=== PATIENT | male | born 1965 | race Caucasian/White ===

== ENCOUNTER → 2016-08-16 | Outpatient (CLI) | payer SELFPAY ==
[~2016-08-16] MED LIST: DIPH25CA37 PO; NAPR1TAB9 PO
[2016-08-16 12:57] LABS: ALKALINE PHOSPHATASE 49 U/L (45-117); ALT/SGPT 39 U/L (12-78); AST/SGOT 23 U/L (15-37); BLOOD UREA NITROGEN 17 mg/dl (7-18); BUN/CREATININE RATIO 13.9 (10-20); CALCIUM 9.1 mg/dl (8.5-10.1); CARBON DIOXIDE 26 mmol/L (21-32); CHLORIDE 107 mmol/L (98-107); CHOLESTEROL 136 mg/dl (0-200); GLUCOSE 115 mg/dl (70-99); POTASSIUM 4.2 mmol/L (3.5-5.1); SODIUM 140 mmol/L (136-145)
[2016-08-16 13:00] LABS: ESTIMATED AVERAGE GLUCOSE 123 mg/dl; HA1C FLAG Normal (Normal)
[2016-08-16 13:03] LABS: CHOLESTEROL/HDL RATIO 4.4; HDL CHOLESTEROL 31 mg/dl; LDL CHOLESTEROL CALCULATED 86 mg/dl; TRIGLYCERIDES 97 mg/dl (0-150); VERY LOW DENSITY LIPOPROT CALC 19 mg/dl
== END | disposition home or self-care (01) ==
LOC: C.LABPVFM 07:34
PROVIDERS: ATTEND Family Medicine
DX: E78.5 Hyperlipidemia, unspecified (principal); E11.9 Type 2 diabetes mellitus without complications

== ENCOUNTER → 2016-09-27 | Outpatient (CLI) | payer OTHER ==
--- NOTE | 2016-09-27 16:41 | DIAGNOSTIC IMAGING REPORT ---
LEFT WRIST MIN 3 VIEWS ROUTINE CLINICAL HISTORY: M25.529 Elbow pain, [id number] Chronic elbow painM13.80 Symms COMPARISON: None. DISCUSSION: Severe degenerative change throughout the distal radius ulna as well as carpal structures. Multiple subchondral cysts. Generalized bony osteopenia. There is no evidence for soft tissue swelling. 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 Electronically signed by: Mehul Alanis M.D. 09/27/2016 4:39 PM Dictated Date/Time: 09/27/2016 4:38 PM
--- NOTE | 2016-09-27 16:42 | DIAGNOSTIC IMAGING REPORT ---
RIGHT WRIST MIN 3 VIEWS ROUTINE CLINICAL HISTORY: M25.529 Elbow pain, [id number] Chronic elbow painM13.80 Symms Right COMPARISON: None. DISCUSSION: The bones and joint spaces appear intact. There is no evidence of fracture, dislocation or bony disease. Considerable degenerative change throughout. Multiple subchondral cysts. IMPRESSION: Severe degenerative and cystic change. No acute fracture or dislocation. Electronically signed by: Mehul Alanis M.D. 09/27/2016 4:40 PM Dictated Date/Time: 09/27/2016 4:39 PM
--- NOTE | 2016-09-27 16:43 | DIAGNOSTIC IMAGING REPORT ---
RIGHT HAND MIN 3 VIEWS ROUTINE CLINICAL HISTORY: M25.529 Elbow pain, [id number] Chronic elbow painM13.80 Symms Right COMPARISON: None. DISCUSSION: Severe degenerative and erosive change of the first through third carpometacarpal joints. Moderate degenerative changes of the proximal interphalangeal joints. The appearance is suggestive of erosive osteoarthritic change. There is no evidence for soft tissue swelling. IMPRESSION: Findings consistent with rather significant erosive osteoarthritic change. Electronically signed by: Mehul Alanis M.D. 09/27/2016 4:41 PM Dictated Date/Time: 09/27/2016 4:40 PM
--- NOTE | 2016-09-27 16:44 | DIAGNOSTIC IMAGING REPORT ---
LEFT HAND MIN 3 VIEWS ROUTINE CLINICAL HISTORY: M25.529 Elbow pain, [id number] Chronic elbow painM13.80 Symms pain COMPARISON: None. DISCUSSION: Considerable erosive osteoarthritic change throughout the wrist and hand. Within the hand is most prominent at the metacarpal phalangeal joints as well as the proximal interphalangeal joint row. There is no evidence for fracture. Severe degenerative change of the osseous structures of the wrist are again noted. There is no evidence for soft tissue swelling. IMPRESSION: Severe erosive osteoarthritic change Electronically signed by: Mehul Alanis M.D. 09/27/2016 4:42 PM Dictated Date/Time: 09/27/2016 4:41 PM
[2016-09-27 17:49] LABS: TOTAL IRON BINDING CAPACITY 336 mcg/dl (250-450)
[2016-09-30 17:32] LABS: CYCLIC CITRULLINATED PEPT IGG >250 UNITS (<20); ENDOMYSIAL IGA AB TC 15064 Negative (Negative)
== END | disposition home or self-care (01) ==
LOC: C.RAD1850 15:51
PROVIDERS: ATTEND Internal Medicine Rheumatology
DX: M13.80 Other specified arthritis, unspecified site (principal); M25.529 Pain in unspecified elbow

== ENCOUNTER → 2016-12-28 | Outpatient (CLI) | payer OTHER ==
[2016-12-28 12:48] LABS: BASO % 0.4 %; BASO ABS # 0.02 K/uL (0-0.2); COMPLETE YES; EOS % 4.5 %; HEMATOCRIT 42.3 % (42-52); IG% 0.2 %; LYMPH % 30.4 %; LYMPH ABS # 1.61 K/uL (1.2-3.4); MEAN CELL VOLUME 86.7 fL (80-100); MEAN CORPUSCULAR HEMOGLOBIN 29.5 pg (25-34); MONO % 6.6 %; NEUT % 57.9 %; PLATELET COUNT 210 K/uL (130-400); RED BLOOD COUNT 4.88 M/uL (4.7-6.1)
[2016-12-28 13:12] LABS: ALT/SGPT 34 U/L (12-78)
[2016-12-28 13:15] LABS: ALKALINE PHOSPHATASE 40 U/L (45-117); AST/SGOT 19 U/L (15-37)
== END | disposition home or self-care (01) ==
LOC: C.LABPVFM 07:17
PROVIDERS: ATTEND Internal Medicine Rheumatology
DX: M05.9 Rheumatoid arthritis with rheumatoid factor, unspecified (principal); Z79.1 Long term (current) use of non-steroidal anti-inflammatories (NSAID); Z79.899 Other long term (current) drug therapy

== ENCOUNTER → 2017-02-07 | Outpatient (CLI) | payer OTHER ==
[2017-02-07 15:42] LABS: BASO % 0.3 %; BASO ABS # 0.02 K/uL (0-0.2); COMPLETE YES; EOS % 2.8 %; HEMATOCRIT 40.4 % (42-52); IG% 0.3 %; LYMPH % 19.8 %; LYMPH ABS # 1.14 K/uL (1.2-3.4); MEAN CELL VOLUME 84.2 fL (80-100); MEAN CORPUSCULAR HEMOGLOBIN 29.2 pg (25-34); MEAN CORPUSCULAR HGB CONC 34.7 g/dl (32-36); MEAN PLATELET VOLUME 9.8 fL (7.4-10.4); NEUT % 71.8 %; PLATELET COUNT 195 K/uL (130-400); WHITE BLOOD COUNT 5.75 K/uL (4.8-10.8)
[2017-02-07 16:09] LABS: ALT/SGPT 38 U/L (12-78); AST/SGOT 20 U/L (15-37)
== END | disposition home or self-care (01) ==
LOC: C.LAB1850 14:01
PROVIDERS: ATTEND Internal Medicine Rheumatology
DX: M05.9 Rheumatoid arthritis with rheumatoid factor, unspecified (principal); Z79.1 Long term (current) use of non-steroidal anti-inflammatories (NSAID); Z79.899 Other long term (current) drug therapy; L50.9 Urticaria, unspecified

== ENCOUNTER → 2017-07-06 | Outpatient (CLI) | payer OTHER ==
[2017-07-06 12:42] LABS: BASO % 0.4 %; BASO ABS # 0.02 K/uL (0-0.2); EOS ABS # 0.15 K/uL (0-0.5); HEMATOCRIT 46.1 % (42-52); HEMOGLOBIN 16.1 g/dL (14.0-18.0); IG# 0.02 K/uL (0.00-0.02); LYMPH % 33.8 %; LYMPH ABS # 1.68 K/uL (1.2-3.4); MEAN CELL VOLUME 89.7 fL (80-100); MEAN CORPUSCULAR HEMOGLOBIN 31.3 pg (25-34); MEAN CORPUSCULAR HGB CONC 34.9 g/dl (32-36); MEAN PLATELET VOLUME 10.1 fL (7.4-10.4); MONO % 9.7 %; MONO ABS # 0.48 K/uL (0.11-0.59); NEUT % 52.7 %; NEUT ABS # 2.62 K/uL (1.4-6.5); PLATELET COUNT 192 K/uL (130-400); RED CELL DISTRIBUTION WIDTH CV 13.9 % (11.5-14.5); RED CELL DISTRIBUTION WIDTH SD 45.7 fL (36.4-46.3); WHITE BLOOD COUNT 4.97 K/uL (4.8-10.8)
[2017-07-06 14:56] LABS: ALBUMIN 4.3 gm/dl (3.4-5.0); ALT/SGPT 49 U/L (12-78); AST/SGOT 24 U/L (15-37); CREATININE 1.28 mg/dl (0.60-1.40)
[2017-07-06 14:58] LABS: ALKALINE PHOSPHATASE 41 U/L (45-117); TOTAL PROTEIN 7.7 gm/dl (6.4-8.2)
== END | disposition home or self-care (01) ==
LOC: C.LABPVFM 07:52
PROVIDERS: ATTEND Internal Medicine Rheumatology
DX: Z51.81 Encounter for therapeutic drug level monitoring (principal); Z79.899 Other long term (current) drug therapy; M05.9 Rheumatoid arthritis with rheumatoid factor, unspecified

== ENCOUNTER → 2017-08-06 | Outpatient (CLI) | payer OTHER ==
[2017-08-06 13:18] LABS: HEMOGLOBIN A1C 5.4 % (4.5-5.6)
[2017-08-06 14:06] LABS: BLOOD UREA NITROGEN 14 mg/dl (7-18); CALCIUM 9.1 mg/dl (8.5-10.1); CARBON DIOXIDE 27 mmol/L (21-32); CHOLESTEROL 197 mg/dl (0-200); CREATININE 1.25 mg/dl (0.60-1.40); GLUCOSE 116 mg/dl (70-99); SODIUM 140 mmol/L (136-145)
[2017-08-06 14:11] LABS: LDL CHOLESTEROL CALCULATED 139 mg/dl
== END | disposition home or self-care (01) ==
LOC: C.LABPVFM 07:40
PROVIDERS: ATTEND Family Medicine
DX: R73.9 Hyperglycemia, unspecified (principal); Z79.899 Other long term (current) drug therapy

== ENCOUNTER → 2018-01-22 | Outpatient (CLI) | payer OTHER ==
[2018-01-22 12:54] LABS: BASO % 0.4 %; BASO ABS # 0.02 K/uL (0-0.2); EOS % 5.7 %; EOS ABS # 0.26 K/uL (0-0.5); HEMATOCRIT 45.4 % (42-52); HEMOGLOBIN 15.2 g/dL (14.0-18.0); IG# 0.01 K/uL (0.00-0.02); LYMPH % 40.2 %; LYMPH ABS # 1.82 K/uL (1.2-3.4); MEAN CELL VOLUME 90.3 fL (80-100); MEAN CORPUSCULAR HEMOGLOBIN 30.2 pg (25-34); MEAN CORPUSCULAR HGB CONC 33.5 g/dl (32-36); MEAN PLATELET VOLUME 10.3 fL (7.4-10.4); MONO % 10.6 %; MONO ABS # 0.48 K/uL (0.11-0.59); NEUT % 42.9 %; NEUT ABS # 1.94 K/uL (1.4-6.5); PLATELET COUNT 171 K/uL (130-400); RED CELL DISTRIBUTION WIDTH CV 13.2 % (11.5-14.5); RED CELL DISTRIBUTION WIDTH SD 43.3 fL (36.4-46.3); WHITE BLOOD COUNT 4.53 K/uL (4.8-10.8)
[2018-01-22 13:49] LABS: ALBUMIN 3.9 gm/dl (3.4-5.0); ALKALINE PHOSPHATASE 45 U/L (45-117); ALT/SGPT 85 U/L (12-78); AST/SGOT 33 U/L (15-37); TOTAL PROTEIN 7.6 gm/dl (6.4-8.2)
[2018-01-22 14:19] LABS: HEP C IGG 13 YRS+OLDER_RFLX NEG (NEG)
== END | disposition home or self-care (01) ==
LOC: C.LABPVFM 07:57
PROVIDERS: ATTEND Family Medicine
DX: Z79.899 Other long term (current) drug therapy (principal); R94.5 Abnormal results of liver function studies